=== PATIENT | female | born 1970 | race Hispanic/Latino ===

== ENCOUNTER 2023-10-15 11:15 | Inpatient (IN) | payer BC ==
[~2023-10-15] VITALS: Ht 167.6 cm; Wt 77.6 kg
[~2023-10-15 11:15] MED LIST: AEC81 PO; AMLO2.5T2 PO; CALC-1009 PO; CEPH250C3 PO; GLIM1TAB56 PO; INSU100V12 SQ
[2023-10-15 11:57] LABS: HEMATOCRIT 29.8 % (36-48); MEAN CORPUSCULAR HEMOGLOBIN 23.9 pg (27.0-33.0); MEAN CORPUSCULAR HGB CONC 29.2 g/dL (32.0-36.0); MEAN CORPUSCULAR VOLUME 81.9 fL (79-99); NUCLEATED RED BLOOD CELLS 0.3 % (0.0-0.19); PLATELET COUNT (AUTO) 416 K/uL (130-400); RED BLOOD CELL COUNT(AUTO) 3.64 MIL/uL (4.00-5.50); RED CELL DISTRIBUTION WIDTH 17.8 % (11.0-15.5); WHITE BLOOD COUNT (AUTO) 6.8 K/uL (4.8-10.8)
[2023-10-15 12:13] LABS: CREATININE 7.3 mg/dL (0.5-1.0); INR 0.97 (0.85-1.15); POTASSIUM 5.5 mmol/L (3.5-5.1); PROTHROMBIN TIME 11.5 SEC (9.6-11.6)
[2023-10-15 12:15] LABS: PARTIAL THROMBOPLASTIN TIME 32.7 SEC (26.3-35.5)
[2023-10-15 12:18] LABS: ALBUMIN 1.8 g/dL (3.5-5.0); B-TYPE NATRIURETIC PEPTIDE 2120 pg/mL (0-100); BILIRUBIN,TOTAL 0.2 mg/dL (0.2-1.0); TOTAL PROTEIN, SERUM 6.2 g/dL (6.0-8.3)
[2023-10-15] MEDS ORDERED: BUMETANIDE 2.5MG/10ML (DRIP) 40 ML IV SCH (13:00)
[2023-10-15 13:11] LABS: EOSINOPHILS % (MANUAL) 7 % (1-6); LYMPHOCYTES % (MANUAL) 15 % (22-44); MAN.DIFF COMMENT-IMPRESSION MANUAL DIFFERENTIAL; MONOCYTES % (MANUAL) 14 % (2-9); SEGMENTED NEUTROPHILS % 64 % (40-70); TOTAL CELLS COUNTED 100
[2023-10-15 13:12] LABS: PLATELET MORPHOLOGY COMMENT SLIGHT INCREASED
[2023-10-15] MEDS: NA ZIRCON CYCLOSIL(LOKELMA 10GM) PO ONE (13:13)
[2023-10-15] MEDS: CALCIUM GLUC 1GM/10ML VIAL IVPB SCH (13:14)
[2023-10-15] MEDS: 0.9%NACL 50ML IV SCH (13:14)
[2023-10-15] MEDS ORDERED: DEXTROSE 50%-WATER 50 ML DISP.SYRIN IV PRN ×2 (13:30→16:30)
[2023-10-15] MEDS ORDERED: GLUCAGON 1MG KIT 1 MG ML IM PRN ×2 (13:30→16:30)
[2023-10-15] MEDS ORDERED: AMLO2.5T4 PO (13:31)
[2023-10-15] MEDS ORDERED: GLIM1TAB56 PO (13:32)
[2023-10-15 13:50] VITALS: PULSE 90; RESP 18; O2SAT 98
[2023-10-15 14:31] LABS: HEMOGLOBIN A1C 7.4 % (4.0-6.0)
[2023-10-15 14:49] LABS: % IRON SATURATION 6.7 % (22-44)
[2023-10-15] MEDS: BUMETANIDE 2.5MG/10ML (DRIP) 40 ML IV SCH (15:13)
[2023-10-15 15:14] LABS: ABG BASE EXCESS -13.7 mmol/L (-2.0-3.0); ABG HCO3 12.2 mmol/L (21.0-28.0); ABG PCO2 29 mmHg (32-45); ABG PH 7.237 (7.35-7.450); PO2, ARTERIAL BG 93.9 mmHg (83.0-108.0); VENT MODE, BG NC (ROOM AIR)
[2023-10-15] MEDS: SODIUM BICARBONATE 650 MG TAB PO SCH ×2 (15:16→19:07)
[2023-10-15] MEDS: HYDRALAZINE 20MG/ML VIAL IV PRN (15:16)
[2023-10-15] MEDS: AMLODIPINE 5 MG TAB PO SCH (15:16)
[2023-10-15 15:19] LABS: MAGNESIUM 2.1 mg/dL (1.80-2.40); URIC ACID 6.7 mg/dL (2.6-7.2)
[2023-10-15] MEDS ORDERED: IRON SUCROSE COMPLEX 100 MG/5 ML VIAL IVP SCH (15:30)
[2023-10-15 15:48] LABS: HIV 1&2 ANTIBODY Non-Reactive (Negative)
[2023-10-15 15:49] LABS: HIV-1 p24 Antigen Non-Reactive (Negative)
[2023-10-15 16:13] LABS: ADD UA MICROSCOPIC YES; APPEARANCE,URINE CLEAR (CLEAR); BILIRUBIN,URINE NEGATIVE (NEGATIVE); COLOR,URINE LIGHT-YELLOW (YELLOW); GLUCOSE, URINE (UA) TRACE mg/dL (NEGATIVE); KETONES,URINE NEGATIVE (NEGATIVE); LEUKOCYTE ESTERASE ,URINE NEGATIVE Leu/uL (NEGATIVE); NITRATE,URINE NEGATIVE (NEGATIVE); PH,URINE 6.5 (5.0-8.0); PROTEIN,URINE 600 mg/dL (NEGATIVE); UROBILINOGEN,URINE 0.2 mg/dL (0.2-1.0)
[2023-10-15 16:18] LABS: BACTERIA,URINE RARE /HPF (None Seen); MUCUS,URINE RARE LPF (None Seen); SQUAMOUS EPITHELIAL CELL,UR RARE /HPF (0-2)
[2023-10-15] MEDS: INSULIN HUMULIN R 100 UNIT/ML 3ML SQ SCH (16:30)
[2023-10-15] MEDS ORDERED: POTASSIUM CHLORIDE 10% ELIXIR 20 MEQ/15 ML UDCUP PO PRN (16:30)
[2023-10-15] MEDS ORDERED: POTASSIUM CHLORIDE 10MEQ/100ML 100 ML IV PRN ×2 (16:30)
[2023-10-15] MEDS ORDERED: IRON SUCROSE COMPLEX 300 MG in 0.9% NACL 250ML 250 ML IVP SCH (16:30)
[2023-10-15] MEDS ORDERED: KCL 20 MEQ ERTAB PO PRN (16:30)
[2023-10-15 16:47] LABS: CHLORIDE,URINE RANDOM 101 mmol/L (110-250); POTASSIUM,URINE RANDOM 25 mmol/L (25-125); SODIUM,URINE RANDOM 101 mmol/l (40-220)
[2023-10-15 16:53] LABS: AMPHET/METH SCREEN,URINE NEGATIVE (NEGATIVE); BARBITURATE SCREEN, URINE NEGATIVE (NEGATIVE); BENZODIAZEPINES SCREEN,URINE NEGATIVE (NEGATIVE); CANNABINOID SCREEN,URINE NEGATIVE (NEGATIVE); COCAINE SCREEN,URINE NEGATIVE (NEGATIVE); OPIATE SCREEN,URINE NEGATIVE (NEGATIVE); PHENCYCLIDINE SCREEN,URINE NEGATIVE (NEGATIVE)
[2023-10-15 17:02] LABS: SARS-CoV-2, RNA, NAAT NEGATIVE SARS CoV-2 (NEGATIVE)
[2023-10-15] MEDS: FUROSEMIDE 40MG VIAL IV SCH (17:03)
[2023-10-15] MEDS: CA 600MG+VIT D 400 UNIT TAB 1 TAB TABLET PO SCH (17:04)
[2023-10-15] MEDS: IRON SUCROSE COMPLEX 300 MG in 0.9% NACL 250ML 250 ML IVP SCH (17:04)
[2023-10-15 17:11] LABS: INFLUENZA TYPE A NEGATIVE FOR TYPE A (NEG); INFLUENZA TYPE B NEGATIVE FOR TYPE B (NEG)
[2023-10-15 17:49] VITALS: BP 134/76; PULSE 92; RESP 22
[2023-10-15 18:35] LABS: CREATININE 7.5 mg/dL (0.5-1.0); POTASSIUM 5.3 mmol/L (3.5-5.1)
[2023-10-15 18:52] VITALS: O2SAT 95
[2023-10-15] MEDS: PANTOPRAZOLE 40 MG TAB DR PO SCH (19:07)
[2023-10-15] MEDS: HEPARIN 5,000 UNIT VIAL SQ SCH (19:07)
[2023-10-15] MEDS: BUDESONIDE 0.5 MG/2 ML INH IH SCH (19:28)
[2023-10-15 19:34] VITALS: PULSE 85; RESP 16
[2023-10-15 19:35] VITALS: BP 147/65; PULSE 86; RESP 18
[2023-10-15 19:35] LABS: CHOLESTEROL 162 mg/dL (<200); HDL CHOLESTEROL 86 mg/dL (35-85); LDL DIRECT 66 mg/dL (0-99); TRIGLYCERIDES 108 mg/dL (30-200)
[2023-10-15 20:00] VITALS: O2SAT 95
[2023-10-15] MEDS: NA ZIRCON CYCLOSIL(LOKELMA 10GM) PO SCH (22:05)
[2023-10-16] VITALS (12 sets, daily range): BP systolic 129–139; BP diastolic 62–88; PULSE 86–95; RESP 0–22; O2SAT 95–97
[2023-10-16] MEDS: GUAIFENESIN-DM 200/20 MG 10 ML PO ONE (02:17)
[2023-10-16] MEDS: GUAIFENESIN-DM 200/20 MG 10 ML ONE (02:37)
[2023-10-16] MEDS: ONDANSETRON 4MG INJ IVP PRN (02:44)
[2023-10-16 03:57] LABS: BASOPHILS # (AUTO) 0.08 K/uL (0.00-0.20); EOSINOPHILS # (AUTO) 0.23 K/uL (0.00-0.70); EOSINOPHILS % (AUTO) 2.9 % (0.0-8.0); HEMATOCRIT 25.7 % (36-48); IMMATURE GRANULOCYTE ABSOLUTE 0.03 K/uL (0-1); LYMPHOCYTES # (AUTO) 1.1 K/uL (1.0-4.8); LYMPHOCYTES % (AUTO) 14.6 % (21.0-51.0); MEAN CORPUSCULAR HEMOGLOBIN 23.7 pg (27.0-33.0); MEAN CORPUSCULAR HGB CONC 29.6 g/dL (32.0-36.0); MEAN CORPUSCULAR VOLUME 80.1 fL (79-99); MONOCYTES # (AUTO) 0.5 K/uL (0.1-1.0); MONOCYTES % (AUTO) 6.7 % (3.0-13.0); NEUTROPHILS # (AUTO) 5.8 K/uL (1.8-7.7); NEUTROPHILS % (AUTO) 74.4 % (40.0-77.0); NUCLEATED RED BLOOD CELLS 0.4 % (0.0-0.19); PLATELET COUNT (AUTO) 402 K/uL (130-400); RED BLOOD CELL COUNT(AUTO) 3.21 MIL/uL (4.00-5.50); RED CELL DISTRIBUTION WIDTH 18.2 % (11.0-15.5); WHITE BLOOD COUNT (AUTO) 7.8 K/uL (4.8-10.8)
[2023-10-16] MEDS: PROMETHAZINE HCL 25 MG/ML 1ML AMPULE IM ONE ×2 (04:09→04:10)
[2023-10-16 04:10] LABS: CREATININE 7.5 mg/dL (0.5-1.0); MAGNESIUM 1.9 mg/dL (1.80-2.40); POTASSIUM 4.9 mmol/L (3.5-5.1)
[2023-10-16] MEDS ORDERED: LEVOTHYROXINE 100 MCG TABLET PO SCH (06:30)
[2023-10-16] MEDS: PANTOPRAZOLE 40 MG TAB DR PO SCH (10:17)
[2023-10-16] MEDS: ASPIRIN 81 MG EC TAB PO SCH (10:17)
[2023-10-16] MEDS ORDERED: COMPOUND IV MISC 1 EACH IVSOLN MISC PRN (11:30)
[2023-10-16] MEDS: DOCUSATE SODIUM 100 MG CAP PO ONE (19:49)
[2023-10-16 19:54] LABS: CREATININE 7.8 mg/dL (0.5-1.0); POTASSIUM 4.8 mmol/L (3.5-5.1)
[2023-10-16] MEDS ORDERED: DOCUSATE SODIUM 100 MG CAP PO SCH (21:00)
[2023-10-16] MEDS: HEPARIN 5,000 UNIT VIAL SQ SCH (21:45)
[2023-10-16 22:35] LABS: HEPATITIS A IGM ANTIBODY Non-Reactive (Nonreactive); HEPATITIS B CORE IGM ANTIBODY Non-Reactive (Negative); HEPATITIS B SURFACE ANTIGEN Non-Reactive (Nonreactive); HEPATITIS C ANTIBODY Non-Reactive (Nonreactive)
[2023-10-17] VITALS (11 sets, daily range): BP systolic 123–168; BP diastolic 60–73; PULSE 90–100; RESP 18–20; O2SAT 95–99
[2023-10-17 05:42] LABS: BASOPHILS # (AUTO) 0.08 K/uL (0.00-0.20); BASOPHILS % (AUTO) 0.5 % (0.0-5.0); EOSINOPHILS # (AUTO) 0.11 K/uL (0.00-0.70); EOSINOPHILS % (AUTO) 0.7 % (0.0-8.0); HEMATOCRIT 25.9 % (36-48); LYMPHOCYTES # (AUTO) 1.5 K/uL (1.0-4.8); LYMPHOCYTES % (AUTO) 9.2 % (21.0-51.0); MEAN CORPUSCULAR HEMOGLOBIN 23.6 pg (27.0-33.0); MEAN CORPUSCULAR VOLUME 81.4 fL (79-99); MONOCYTES % (AUTO) 6.1 % (3.0-13.0); NEUTROPHILS # (AUTO) 13.6 K/uL (1.8-7.7); NEUTROPHILS % (AUTO) 82.9 % (40.0-77.0); NUCLEATED RED BLOOD CELLS 0.2 % (0.0-0.19); PLATELET COUNT (AUTO) 382 K/uL (130-400); RED BLOOD CELL COUNT(AUTO) 3.18 MIL/uL (4.00-5.50); RED CELL DISTRIBUTION WIDTH 18.3 % (11.0-15.5); WHITE BLOOD COUNT (AUTO) 16.4 K/uL (4.8-10.8)
[2023-10-17 05:54] LABS: INR 1.09 (0.85-1.15); PROTHROMBIN TIME 12.8 SEC (9.6-11.6)
[2023-10-17 05:55] LABS: PARTIAL THROMBOPLASTIN TIME 45.7 SEC (26.3-35.5)
[2023-10-17 05:56] LABS: CREATININE 7.7 mg/dL (0.5-1.0); POTASSIUM 4.7 mmol/L (3.5-5.1)
[2023-10-17 11:39] LABS: ABG BASE EXCESS -8.8 mmol/L (-2.0-3.0); ABG HCO3 16.3 mmol/L (21.0-28.0); ABG OXYGEN SATURATION 96.7 % (95.0-99.0); ABG PCO2 33 mmHg (32-45); ABG PH 7.309 (7.35-7.450); DEVICE COMMENT THOMAS RN RR; PO2, ARTERIAL BG 94.7 mmHg (83.0-108.0); VENT MODE, BG 2L NC (ROOM AIR)
[2023-10-17] MEDS: SODIUM BICARB 50MEQ 50ML VIAL IV ONE ×2 (12:03→22:45)
[2023-10-17] MEDS: METRONIDAZOLE 500MG/100ML BAG 100 ML IVPB SCH (13:15)
[2023-10-17 13:42] LABS: POTASSIUM 4.9 mmol/L (3.5-5.1)
[2023-10-17] MEDS: CEFEPIME HCL 1 GM VIAL IVPB SCH (15:42)
[2023-10-17 19:44] LABS: POTASSIUM 4.6 mmol/L (3.5-5.1)
[2023-10-17] MEDS: ACETAMINOPHEN 325 MG TAB PO PRN (22:45)
[2023-10-17 23:19] LABS: CREATININE 7.9 mg/dL (0.5-1.0); POTASSIUM 4.5 mmol/L (3.5-5.1)
[2023-10-18] VITALS (11 sets, daily range): BP systolic 131–149; BP diastolic 63–84; PULSE 88–96; RESP 18–20; O2SAT 94–98
[2023-10-18 04:43] LABS: ALBUMIN 1.2 g/dL (3.5-5.0); BILIRUBIN,TOTAL 0.2 mg/dL (0.2-1.0); MAGNESIUM 1.8 mg/dL (1.80-2.40); POTASSIUM 4.3 mmol/L (3.5-5.1); TOTAL PROTEIN, SERUM 4.9 g/dL (6.0-8.3)
[2023-10-18 04:56] LABS: HEMATOCRIT 23.9 % (36-48); MEAN CORPUSCULAR HEMOGLOBIN 23.8 pg (27.0-33.0); MEAN CORPUSCULAR HGB CONC 29.7 g/dL (32.0-36.0); MEAN CORPUSCULAR VOLUME 80.2 fL (79-99); NUCLEATED RED BLOOD CELLS 0.3 % (0.0-0.19); PLATELET COUNT (AUTO) 360 K/uL (130-400); RED BLOOD CELL COUNT(AUTO) 2.98 MIL/uL (4.00-5.50); RED CELL DISTRIBUTION WIDTH 18.4 % (11.0-15.5); WHITE BLOOD COUNT (AUTO) 12.8 K/uL (4.8-10.8)
[2023-10-18 05:49] LABS: BAND NEUTROPHILS % (MANUAL) 7 % (0-2); BASOPHILS % (MANUAL) 2 % (0-2); EOSINOPHILS % (MANUAL) 6 % (1-6); LYMPHOCYTES % (MANUAL) 12 % (22-44); MAN.DIFF COMMENT-IMPRESSION MANUAL DIFFERENTIAL; MONOCYTES % (MANUAL) 2 % (2-9); SEGMENTED NEUTROPHILS % 71 % (40-70); TOTAL CELLS COUNTED 100
[2023-10-18 05:50] LABS: PLATELET MORPHOLOGY COMMENT ADEQUATE; WBC MORPHOLOGY BANDS SEEN
[2023-10-18 07:27] LABS: POTASSIUM 4.4 mmol/L (3.5-5.1)
[2023-10-18] MEDS: METOCLOPRAMIDE 10 MG/2 ML VIAL IVP SCH (09:57)
[2023-10-18] MEDS: MAGNESIUM 2GM PREMIX 50ML 50 ML IV PRN (09:58)
[2023-10-18 15:13] LABS: ATYPICAL P-ANCA AB <1:20 titer (Neg:<1:20); CYTOPLASMIC (C-ANCA) AB, IGG <1:20 titer (Neg:<1:20)
[2023-10-18] MEDS: BENZONATATE 100 MG CAPSULE PO PRN (18:32)
[2023-10-19] VITALS (14 sets, daily range): BP systolic 125–140; BP diastolic 57–70; PULSE 83–105; RESP 18–20; O2SAT 93–97
[2023-10-19 04:55] LABS: BASOPHILS # (AUTO) 0.08 K/uL (0.00-0.20); BASOPHILS % (AUTO) 0.8 % (0.0-5.0); EOSINOPHILS # (AUTO) 0.32 K/uL (0.00-0.70); EOSINOPHILS % (AUTO) 3.2 % (0.0-8.0); HEMATOCRIT 25.7 % (36-48); IMMATURE GRANULOCYTE ABSOLUTE 0.06 K/uL (0-1); LYMPHOCYTES # (AUTO) 1.5 K/uL (1.0-4.8); LYMPHOCYTES % (AUTO) 14.6 % (21.0-51.0); MEAN CORPUSCULAR HEMOGLOBIN 23.9 pg (27.0-33.0); MEAN CORPUSCULAR HGB CONC 29.6 g/dL (32.0-36.0); MEAN CORPUSCULAR VOLUME 80.8 fL (79-99); MONOCYTES # (AUTO) 0.8 K/uL (0.1-1.0); MONOCYTES % (AUTO) 8.1 % (3.0-13.0); NEUTROPHILS # (AUTO) 7.3 K/uL (1.8-7.7); NEUTROPHILS % (AUTO) 72.7 % (40.0-77.0); NUCLEATED RED BLOOD CELLS 0.2 % (0.0-0.19); PLATELET COUNT (AUTO) 386 K/uL (130-400); RED BLOOD CELL COUNT(AUTO) 3.18 MIL/uL (4.00-5.50); RED CELL DISTRIBUTION WIDTH 18.6 % (11.0-15.5); WHITE BLOOD COUNT (AUTO) 10.1 K/uL (4.8-10.8)
[2023-10-19 05:25] LABS: ALBUMIN 1.3 g/dL (3.5-5.0); BILIRUBIN,TOTAL 0.2 mg/dL (0.2-1.0); MAGNESIUM 2.2 mg/dL (1.80-2.40); POTASSIUM 4.4 mmol/L (3.5-5.1); TOTAL PROTEIN, SERUM 5.2 g/dL (6.0-8.3)
[2023-10-19 05:29] LABS: CREATININE 8.3 mg/dL (0.5-1.0)
[2023-10-19] MEDS: IPRATROPIUM/ALBUTEROL SULFATE 3 ML SOLUTION IH PRN (11:36)
[2023-10-20] VITALS (23 sets, daily range): BP systolic 131–169; BP diastolic 62–97; PULSE 89–106; RESP 16–18; TEMP 98.2–98.4; O2SAT 94–100
[2023-10-20 04:15] LABS: BASOPHILS # (AUTO) 0.07 K/uL (0.00-0.20); BASOPHILS % (AUTO) 0.8 % (0.0-5.0); EOSINOPHILS # (AUTO) 0.27 K/uL (0.00-0.70); EOSINOPHILS % (AUTO) 3.1 % (0.0-8.0); HEMATOCRIT 24.8 % (36-48); IMMATURE GRANULOCYTE ABSOLUTE 0.05 K/uL (0-1); LYMPHOCYTES # (AUTO) 1.6 K/uL (1.0-4.8); LYMPHOCYTES % (AUTO) 17.9 % (21.0-51.0); MEAN CORPUSCULAR HEMOGLOBIN 23.8 pg (27.0-33.0); MEAN CORPUSCULAR HGB CONC 29.4 g/dL (32.0-36.0); MEAN CORPUSCULAR VOLUME 80.8 fL (79-99); MONOCYTES # (AUTO) 0.9 K/uL (0.1-1.0); MONOCYTES % (AUTO) 9.6 % (3.0-13.0); PLATELET COUNT (AUTO) 368 K/uL (130-400); RED BLOOD CELL COUNT(AUTO) 3.07 MIL/uL (4.00-5.50); RED CELL DISTRIBUTION WIDTH 19.1 % (11.0-15.5); WHITE BLOOD COUNT (AUTO) 8.8 K/uL (4.8-10.8)
[2023-10-20 04:17] LABS: PROTHROMBIN TIME 11.8 SEC (9.6-11.6)
[2023-10-20 04:33] LABS: ALBUMIN 1.3 g/dL (3.5-5.0); BILIRUBIN,TOTAL 0.2 mg/dL (0.2-1.0); MAGNESIUM 2.1 mg/dL (1.80-2.40); POTASSIUM 4.3 mmol/L (3.5-5.1)
[2023-10-20 04:57] LABS: CREATININE 8.5 mg/dL (0.5-1.0)
[2023-10-20] MEDS ORDERED: TAMSULOSIN HCL 0.4 MG CAP.ER.24H PO SCH (09:00)
[2023-10-20] MEDS ORDERED: LIDOCAINE HCL 400MG/20ML VIAL ONE (12:38)
[2023-10-20] MEDS ORDERED: HEPARIN 1,000 UNIT VIAL ONE (12:38)
[2023-10-20 17:57] LABS: HEMATOCRIT 25.4 % (36-48)
[2023-10-20 18:20] LABS: ALBUMIN 1.5 g/dL (3.5-5.0)
[2023-10-20 18:26] LABS: CREATININE 8.6 mg/dL (0.5-1.0)
[2023-10-20 18:27] LABS: % IRON SATURATION 14.7 % (22-44)
[2023-10-20 19:16] LABS: HIV 1&2 ANTIBODY Non-Reactive (Negative); HIV-1 p24 Antigen Non-Reactive (Negative)
[2023-10-21] VITALS (24 sets, daily range): BP systolic 140–162; BP diastolic 75–106; PULSE 82–107; RESP 16–20; TEMP 98–98.2; O2SAT 94–98
[2023-10-21 04:02] LABS: HEMATOCRIT 26.1 % (36-48); MEAN CORPUSCULAR HEMOGLOBIN 23.6 pg (27.0-33.0); MEAN CORPUSCULAR HGB CONC 29.5 g/dL (32.0-36.0); MEAN CORPUSCULAR VOLUME 80.1 fL (79-99); RED BLOOD CELL COUNT(AUTO) 3.26 MIL/uL (4.00-5.50); WHITE BLOOD COUNT (AUTO) 7.5 K/uL (4.8-10.8)
[2023-10-21 04:22] LABS: ALBUMIN 1.3 g/dL (3.5-5.0); BILIRUBIN,TOTAL 0.2 mg/dL (0.2-1.0); CREATININE 6.7 mg/dL (0.5-1.0); MAGNESIUM 1.8 mg/dL (1.80-2.40); PHOSPHORUS 5.3 mg/dL (2.5-4.9); POTASSIUM 3.8 mmol/L (3.5-5.1); TOTAL PROTEIN, SERUM 5.2 g/dL (6.0-8.3)
[2023-10-21 17:08] LABS: HEPATITIS B CORE AB TOTAL Non-Reactive (Nonreactive); HEPATITIS B SURFACE ANTIBODY Negative (Reactive); HEPATITIS B SURFACE ANTIGEN Non-Reactive (Nonreactive)
[2023-10-21] MEDS: HEPARIN 5,000 UNIT VIAL IJ SCH (21:21)
[2023-10-22] VITALS (26 sets, daily range): BP systolic 140–162; BP diastolic 74–96; PULSE 93–105; RESP 16–19; TEMP 97.7–97.9; O2SAT 90–97
[2023-10-22 04:41] LABS: HEMATOCRIT 25.7 % (36-48); MEAN CORPUSCULAR HEMOGLOBIN 23.8 pg (27.0-33.0); MEAN CORPUSCULAR VOLUME 79.3 fL (79-99); RED BLOOD CELL COUNT(AUTO) 3.24 MIL/uL (4.00-5.50); RED CELL DISTRIBUTION WIDTH 18.9 % (11.0-15.5); WHITE BLOOD COUNT (AUTO) 7.9 K/uL (4.8-10.8)
[2023-10-22 05:05] LABS: ALBUMIN 1.3 g/dL (3.5-5.0); BILIRUBIN,TOTAL 0.2 mg/dL (0.2-1.0); CREATININE 5.2 mg/dL (0.5-1.0); MAGNESIUM 1.7 mg/dL (1.80-2.40); POTASSIUM 3.4 mmol/L (3.5-5.1); TOTAL PROTEIN, SERUM 5.1 g/dL (6.0-8.3)
[2023-10-22] MEDS ORDERED: MAGNESIUM 2GM PREMIX 50ML 50 ML IV SCH ×2 (09:00)
[2023-10-22] MEDS: KCL 20 MEQ ERTAB PO ONE (09:16)
[2023-10-23] VITALS (13 sets, daily range): BP systolic 129–159; BP diastolic 65–75; PULSE 88–105; RESP 18–19; O2SAT 94–98
[2023-10-23 04:21] LABS: HEMATOCRIT 25.8 % (36-48); MEAN CORPUSCULAR HEMOGLOBIN 23.9 pg (27.0-33.0); MEAN CORPUSCULAR HGB CONC 29.1 g/dL (32.0-36.0); MEAN CORPUSCULAR VOLUME 82.2 fL (79-99); RED BLOOD CELL COUNT(AUTO) 3.14 MIL/uL (4.00-5.50); RED CELL DISTRIBUTION WIDTH 18.8 % (11.0-15.5); WHITE BLOOD COUNT (AUTO) 7.5 K/uL (4.8-10.8)
[2023-10-23 04:37] LABS: ALBUMIN 1.3 g/dL (3.5-5.0); ASPARTATE AMINOTRANSFERASE 18 U/L (10-37); BILIRUBIN,TOTAL 0.2 mg/dL (0.2-1.0); CARBON DIOXIDE 29 mmol/L (21-32); CHLORIDE 106 mmol/L (101-111); GLOMERULAR FILTR. RATE CALC 13 mL/min (>90); GLUCOSE,RANDOM 113 mg/dL (70-105); POTASSIUM 3.6 mmol/L (3.5-5.1); SODIUM SERUM 143 mmol/L (136-145); UREA NITROGEN, BLOOD 23 mg/dL (7-18)
[2023-10-23 04:47] LABS: ALANINE AMINOTRANSFERASE < 6 U/L (12-78)
[2023-10-23] MEDS: HEPARIN 5,000 UNIT VIAL SQ SCH (14:22)
[2023-10-23] MEDS: METRONIDAZOLE 500 MG TABLET PO SCH (21:51)
[2023-10-24] VITALS (11 sets, daily range): BP systolic 127–147; BP diastolic 71–83; PULSE 89–100; RESP 17–20; O2SAT 94–95
[2023-10-24 05:18] LABS: MEAN CORPUSCULAR HEMOGLOBIN 24.1 pg (27.0-33.0); MEAN CORPUSCULAR HGB CONC 29.2 g/dL (32.0-36.0); MEAN CORPUSCULAR VOLUME 82.5 fL (79-99); RED BLOOD CELL COUNT(AUTO) 2.91 MIL/uL (4.00-5.50); RED CELL DISTRIBUTION WIDTH 18.9 % (11.0-15.5); WHITE BLOOD COUNT (AUTO) 7.2 K/uL (4.8-10.8)
[2023-10-24 05:48] LABS: ALBUMIN 1.3 g/dL (3.5-5.0); BILIRUBIN,TOTAL 0.2 mg/dL (0.2-1.0); CREATININE 4.8 mg/dL (0.5-1.0); MAGNESIUM 1.8 mg/dL (1.80-2.40); POTASSIUM 3.6 mmol/L (3.5-5.1); TOTAL PROTEIN, SERUM 5.1 g/dL (6.0-8.3)
[2023-10-24 10:23] LABS: HEMATOCRIT 27.3 % (36-48); MEAN CORPUSCULAR HEMOGLOBIN 23.3 pg (27.0-33.0); MEAN CORPUSCULAR HGB CONC 28.6 g/dL (32.0-36.0); MEAN CORPUSCULAR VOLUME 81.5 fL (79-99); RED BLOOD CELL COUNT(AUTO) 3.35 MIL/uL (4.00-5.50); RED CELL DISTRIBUTION WIDTH 19.1 % (11.0-15.5); WHITE BLOOD COUNT (AUTO) 8.3 K/uL (4.8-10.8)
[2023-10-24] MEDS: HEPARIN 5,000 UNIT VIAL SQ SCH (20:07)
[2023-10-25] VITALS (26 sets, daily range): BP systolic 132–163; BP diastolic 70–96; PULSE 88–102; RESP 16–20; TEMP 98; O2SAT 92–96
[2023-10-25 06:00] LABS: HEMATOCRIT 26.3 % (36-48); MEAN CORPUSCULAR HGB CONC 28.5 g/dL (32.0-36.0); PLATELET COUNT (AUTO) 366 K/uL (130-400); RED BLOOD CELL COUNT(AUTO) 3.13 MIL/uL (4.00-5.50); RED CELL DISTRIBUTION WIDTH 19.3 % (11.0-15.5); WHITE BLOOD COUNT (AUTO) 9.3 K/uL (4.8-10.8)
[2023-10-25 06:25] LABS: ALBUMIN 1.4 g/dL (3.5-5.0); BILIRUBIN,TOTAL 0.2 mg/dL (0.2-1.0); CREATININE 5.4 mg/dL (0.5-1.0); MAGNESIUM 1.9 mg/dL (1.80-2.40); POTASSIUM 3.7 mmol/L (3.5-5.1); TOTAL PROTEIN, SERUM 5.5 g/dL (6.0-8.3)
[2023-10-25] MEDS: POTASSIUM CHLORIDE 10MEQ SR TAB PO PRN (06:32)
[2023-10-26] VITALS (9 sets, daily range): BP systolic 149–154; BP diastolic 77–82; PULSE 92–100; RESP 18–20; O2SAT 93–97
[2023-10-26 06:39] LABS: HEMATOCRIT 26.1 % (36-48); MEAN CORPUSCULAR HEMOGLOBIN 23.7 pg (27.0-33.0); MEAN CORPUSCULAR HGB CONC 29.1 g/dL (32.0-36.0); MEAN CORPUSCULAR VOLUME 81.3 fL (79-99); RED BLOOD CELL COUNT(AUTO) 3.21 MIL/uL (4.00-5.50); RED CELL DISTRIBUTION WIDTH 19.2 % (11.0-15.5); WHITE BLOOD COUNT (AUTO) 8.7 K/uL (4.8-10.8)
[2023-10-26 06:44] LABS: CREATININE 3.8 mg/dL (0.5-1.0); PHOSPHORUS 3.4 mg/dL (2.5-4.9); POTASSIUM 4.2 mmol/L (3.5-5.1)
[2023-10-27] VITALS (22 sets, daily range): BP systolic 135–161; BP diastolic 59–100; PULSE 89–103; RESP 16–19; TEMP 98.5–98.7; O2SAT 95–97
[2023-10-27 04:13] LABS: BASOPHILS # (AUTO) 0.07 K/uL (0.00-0.20); BASOPHILS % (AUTO) 0.8 % (0.0-5.0); EOSINOPHILS # (AUTO) 0.24 K/uL (0.00-0.70); EOSINOPHILS % (AUTO) 2.6 % (0.0-8.0); HEMATOCRIT 25.5 % (36-48); IMMATURE GRANULOCYTE ABSOLUTE 0.04 K/uL (0-1); LYMPHOCYTES # (AUTO) 1.5 K/uL (1.0-4.8); MEAN CORPUSCULAR HEMOGLOBIN 24.2 pg (27.0-33.0); MEAN CORPUSCULAR HGB CONC 28.6 g/dL (32.0-36.0); MEAN CORPUSCULAR VOLUME 84.4 fL (79-99); MONOCYTES # (AUTO) 1.2 K/uL (0.1-1.0); MONOCYTES % (AUTO) 12.8 % (3.0-13.0); NEUTROPHILS # (AUTO) 6.2 K/uL (1.8-7.7); NEUTROPHILS % (AUTO) 67.4 % (40.0-77.0); PLATELET COUNT (AUTO) 377 K/uL (130-400); RED BLOOD CELL COUNT(AUTO) 3.02 MIL/uL (4.00-5.50); RED CELL DISTRIBUTION WIDTH 19.5 % (11.0-15.5); WHITE BLOOD COUNT (AUTO) 9.2 K/uL (4.8-10.8)
[2023-10-27 04:27] LABS: ALBUMIN 1.5 g/dL (3.5-5.0); BILIRUBIN,TOTAL 0.3 mg/dL (0.2-1.0); CREATININE 4.5 mg/dL (0.5-1.0); PHOSPHORUS 3.8 mg/dL (2.5-4.9); POTASSIUM 4.1 mmol/L (3.5-5.1); TOTAL PROTEIN, SERUM 5.5 g/dL (6.0-8.3)
[2023-10-27] MEDS: EPOETIN ALFA-EPBX (NON-ESRD) 10,000 UNIT/ML VIAL SQ SCH (22:06)
[2023-10-28] VITALS (30 sets, daily range): BP systolic 130–162; BP diastolic 64–86; PULSE 9–98; RESP 15–18; O2SAT 92–98
[2023-10-28 04:08] LABS: BASOPHILS # (AUTO) 0.09 K/uL (0.00-0.20); EOSINOPHILS # (AUTO) 0.23 K/uL (0.00-0.70); EOSINOPHILS % (AUTO) 2.4 % (0.0-8.0); HEMATOCRIT 25.4 % (36-48); IMMATURE GRANULOCYTE ABSOLUTE 0.05 K/uL (0-1); LYMPHOCYTES # (AUTO) 1.6 K/uL (1.0-4.8); LYMPHOCYTES % (AUTO) 17.4 % (21.0-51.0); MEAN CORPUSCULAR HEMOGLOBIN 24.3 pg (27.0-33.0); MEAN CORPUSCULAR HGB CONC 29.9 g/dL (32.0-36.0); MEAN CORPUSCULAR VOLUME 81.2 fL (79-99); MONOCYTES # (AUTO) 0.9 K/uL (0.1-1.0); NEUTROPHILS # (AUTO) 6.6 K/uL (1.8-7.7); NEUTROPHILS % (AUTO) 69.7 % (40.0-77.0); PLATELET COUNT (AUTO) 422 K/uL (130-400); RED BLOOD CELL COUNT(AUTO) 3.13 MIL/uL (4.00-5.50); RED CELL DISTRIBUTION WIDTH 19.9 % (11.0-15.5); WHITE BLOOD COUNT (AUTO) 9.4 K/uL (4.8-10.8)
[2023-10-28 04:19] LABS: INR 0.95 (0.85-1.15); PROTHROMBIN TIME 11.3 SEC (9.6-11.6)
[2023-10-28 04:21] LABS: PARTIAL THROMBOPLASTIN TIME 29.1 SEC (26.3-35.5)
[2023-10-28 04:39] LABS: ALBUMIN 1.5 g/dL (3.5-5.0); BILIRUBIN,TOTAL 0.2 mg/dL (0.2-1.0); CREATININE 3.1 mg/dL (0.5-1.0); PHOSPHORUS 3.3 mg/dL (2.5-4.9); POTASSIUM 3.6 mmol/L (3.5-5.1); TOTAL PROTEIN, SERUM 5.8 g/dL (6.0-8.3)
[2023-10-28] MEDS: LIDOCAINE HCL 400MG/20ML VIAL ONE (11:49)
[2023-10-28] MEDS ORDERED: MIDAZOLAM HCL 1 MG/ML 2ML VIAL ONE (12:04)
[2023-10-28] MEDS ORDERED: LIDOCAINE PF 100MG/5ML (2%) SYRINGE 5ML ONE (12:39)
[2023-10-28] MEDS ORDERED: KETAMINE 50MG/ML SYRINGE 50 MG/ML DISP.SYRIN ONE (12:39)
[2023-10-28] MEDS ORDERED: PROPOFOL 10 MG/ML 20ML VIAL IV ONE (12:39)
[2023-10-28] MEDS ORDERED: ROCURONIUM BROMIDE 10MG/1ML 5ML VL ONE (12:59)
[2023-10-28] MEDS ORDERED: CEFAZOLIN SODIUM 1 GM VIAL ONE ×2 (13:06→13:38)
[2023-10-28] MEDS ORDERED: LIDOCAINE HCL 1% 20 ML VIAL ONE (13:06)
[2023-10-28] MEDS ORDERED: BUPIVACAINE/PF 0.5% 30ML VIAL ONE (13:06)
[2023-10-28] MEDS ORDERED: GLYCOPYRROLATE 0.2 MG/ML 5 ML VIAL ONE (13:12)
[2023-10-28] MEDS ORDERED: HEPARIN 10,000 UNIT/10ML (1,000 UNIT/ML) VIAL ONE (13:15)
[2023-10-28] MEDS: HEPARIN 5,000 UNIT VIAL IRRIG ONE (13:37)
[2023-10-28] MEDS ORDERED: FENTANYL CITRATE PF 50 MCG/1 ML 2ML VIAL ONE (13:38)
[2023-10-28] MEDS: METRONIDAZOLE 500MG/100ML BAG 100 ML ONE (13:39)
[2023-10-28] MEDS: BUPIVACAINE/PF 0.5% 30ML VIAL INJ ONE (13:55)
[2023-10-28] MEDS ORDERED: ACETAMINOPHEN 325 MG TAB PO PRN (14:00)
[2023-10-28] MEDS ORDERED: TRAMADOL HCL 50 MG TABLET PO PRN (14:00)
[2023-10-28] MEDS: TRAMADOL HCL 50 MG TABLET PO PRN (18:11)
[2023-10-29] VITALS (25 sets, daily range): BP systolic 133–159; BP diastolic 68–87; PULSE 71–97; RESP 16–18; TEMP 97.9–98.2; O2SAT 92–98
[2023-10-29 04:41] LABS: HEMATOCRIT 23.9 % (36-48); MEAN CORPUSCULAR HEMOGLOBIN 24.3 pg (27.0-33.0); MEAN CORPUSCULAR HGB CONC 29.7 g/dL (32.0-36.0); MEAN CORPUSCULAR VOLUME 81.8 fL (79-99); RED BLOOD CELL COUNT(AUTO) 2.92 MIL/uL (4.00-5.50); RED CELL DISTRIBUTION WIDTH 20.1 % (11.0-15.5)
[2023-10-29 05:22] LABS: ALBUMIN 1.4 g/dL (3.5-5.0); BILIRUBIN,TOTAL 0.2 mg/dL (0.2-1.0); CREATININE 3.9 mg/dL (0.5-1.0); PHOSPHORUS 4.3 mg/dL (2.5-4.9); POTASSIUM 3.9 mmol/L (3.5-5.1); TOTAL PROTEIN, SERUM 5.3 g/dL (6.0-8.3)
[2023-10-29] MEDS ORDERED: ALBUMIN (HUMAN) 25% 100 ML IV PRN (14:00)
[2023-10-29] MEDS ORDERED: AMLO-257 PO (18:26)
[2023-10-29] MEDS ORDERED: CEPHALEXIN 250 MG CAPSULE PO SCH (21:00)
[2023-10-29] MEDS ORDERED: INSULIN GLARGINE 100 UNITS/ML 10 ML VIAL SQ SCH (21:00)
[2023-10-30] MEDS ORDERED: GLIMEPIRIDE 2 MG TABLET PO SCH (09:00)
[2023-10-30] MEDS ORDERED: AMLODIPINE 2.5 MG TAB PO SCH (09:00)
== END 2023-10-29 19:00 | disposition home or self-care (01) | DRG 264 ==
LOC: EDH 11:15 → EDHIP 13:23 → 2AH 16:55 → 3AH 10-22 20:39
PROVIDERS: ADMIT Internal Medicine; ATTEND Internal Medicine
PROC: 5A1D70Z Performance of Urinary Filtration, Intermittent, Less than 6 Hours Per Day (ICD-10-PCS; 2023-10-20)
PROC: 5A1D70Z Performance of Urinary Filtration, Intermittent, Less than 6 Hours Per Day (ICD-10-PCS; 2023-10-21)
PROC: 02HV33Z Insertion of Infusion Device into Superior Vena Cava, Percutaneous Approach (ICD-10-PCS; 2023-10-21)
PROC: B548ZZA Ultrasonography of Superior Vena Cava, Guidance (ICD-10-PCS; 2023-10-21)
PROC: 5A1D70Z Performance of Urinary Filtration, Intermittent, Less than 6 Hours Per Day (ICD-10-PCS; 2023-10-22)
PROC: 5A1D70Z Performance of Urinary Filtration, Intermittent, Less than 6 Hours Per Day (ICD-10-PCS; 2023-10-25)
PROC: 5A1D70Z Performance of Urinary Filtration, Intermittent, Less than 6 Hours Per Day (ICD-10-PCS; 2023-10-27)
PROC: 03180ZD Bypass Left Brachial Artery to Upper Arm Vein, Open Approach (ICD-10-PCS; principal; 2023-10-28 12:44)
PROC: 5A1D70Z Performance of Urinary Filtration, Intermittent, Less than 6 Hours Per Day (ICD-10-PCS; 2023-10-29)
DX: I13.2 Hypertensive heart and chronic kidney disease with heart failure and with stage 5 chronic kidney disease, or end stage renal disease (principal); I50.33 Acute on chronic diastolic (congestive) heart failure; J15.9 Unspecified bacterial pneumonia; J96.01 Acute respiratory failure with hypoxia; N18.6 End stage renal disease; N17.9 Acute kidney failure, unspecified; E87.20 Acidosis, unspecified; J90 Pleural effusion, not elsewhere classified; J98.11 Atelectasis; J81.1 Chronic pulmonary edema; I82.611 Acute embolism and thrombosis of superficial veins of right upper extremity; Z20.822 Contact with and (suspected) exposure to COVID-19; E88.09 Other disorders of plasma-protein metabolism, not elsewhere classified; E87.5 Hyperkalemia; E11.22 Type 2 diabetes mellitus with diabetic chronic kidney disease; E11.36 Type 2 diabetes mellitus with diabetic cataract; D50.9 Iron deficiency anemia, unspecified; E03.9 Hypothyroidism, unspecified; E77.8 Other disorders of glycoprotein metabolism; E11.51 Type 2 diabetes mellitus with diabetic peripheral angiopathy without gangrene; I16.0 Hypertensive urgency; E83.51 Hypocalcemia; H54.8 Legal blindness, as defined in USA; I25.10 Atherosclerotic heart disease of native coronary artery without angina pectoris; E66.9 Obesity, unspecified; E78.5 Hyperlipidemia, unspecified; Z87.441 Personal history of nephrotic syndrome; Z89.429 Acquired absence of other toe(s), unspecified side; Z91.158 Patient's noncompliance with renal dialysis for other reason; Z99.2 Dependence on renal dialysis; Z88.8 Allergy status to other drugs, medicaments and biological substances; Z91.041 Radiographic dye allergy status; Z68.27 Body mass index [BMI] 27.0-27.9, adult
CPT/HCPCS: 36415; 36558; 36600; 71045; 71250; 74176; 76604; 76770; 77001; 80048; 80051; 80053; 80061; 80074; 80305; 81001; 82010; 82040; 82270; 82306; 82565; 82570; 82607; 82728; 82746; 82803; 82948; 83036; 83540; 83550; 83605; 83735; 83880; 83930; 83935; 84100; 84145; 84156; 84439; 84443; 84481; 84484; 84520; 84550; 85014; 85018; 85025; 85027; 85610; 85730; 86038; 86160; 86215; 86235; 86255; 86701; 86704; 86706; 86850; 86900; 86901; 87040; 87088; 87340; 87390; 87635; 87804; 90935; 92610; 93005; 93306; 93970; 93971; 94640; 94664; 94760; A6250; C1750; G0378; J0360; J0612; J0690; J0692; J1644; J1756; J1815; J1940; J2001; J2250; J2405; J2550; J2704; J2765; J3010; J3475; J3490; J7030; J7050; A4216; A4222; A4223; A4649; A4930; A6207; C1713; C1894; G0168; J0665; Q5106

== ENCOUNTER 2024-02-11 09:24 | Emergency (ER) | payer SELFPAY ==
[~2024-02-11] VITALS: Ht 167.6 cm; Wt 61.7 kg
[~2024-02-11 09:24] MED LIST changes: +AMLO-257 PO; -AMLO2.5T2 PO; -CEPH250C3 PO; -INSU100V12 SQ
[2024-02-11 09:25] VITALS: TEMP 97.6
[2024-02-11 09:41] VITALS: BP 161/81; PULSE 84; RESP 18; O2SAT 98
== END 2024-02-11 10:02 | disposition home or self-care (01) ==
LOC: EDH 09:24
DX: I12.0 Hypertensive chronic kidney disease with stage 5 chronic kidney disease or end stage renal disease (principal); E11.22 Type 2 diabetes mellitus with diabetic chronic kidney disease; N18.6 End stage renal disease; Z49.02 Encounter for fitting and adjustment of peritoneal dialysis catheter; Z79.82 Long term (current) use of aspirin; Z88.6 Allergy status to analgesic agent; Z88.8 Allergy status to other drugs, medicaments and biological substances; Z91.041 Radiographic dye allergy status; Z98.890 Other specified postprocedural states

== ENCOUNTER 2024-02-15 14:45 | Emergency (ER) | payer SELFPAY ==
[~2024-02-15] VITALS: Ht 167.6 cm; Wt 69.9 kg
[2024-02-15 16:42] VITALS: BP 166/87; PULSE 80; RESP 16; TEMP 98.8; O2SAT 97
== END 2024-02-15 16:43 | disposition home or self-care (01) ==
LOC: EDH 14:45
DX: J81.1 Chronic pulmonary edema (principal); N18.6 End stage renal disease; E11.22 Type 2 diabetes mellitus with diabetic chronic kidney disease; Z79.82 Long term (current) use of aspirin; Z79.899 Other long term (current) drug therapy; Z98.890 Other specified postprocedural states; Z88.5 Allergy status to narcotic agent; Z88.8 Allergy status to other drugs, medicaments and biological substances
CPT/HCPCS: 99282

== ENCOUNTER 2024-02-16 11:10 | Day surgery (SDC) | payer SELFPAY ==
[2024-02-16 12:12] LABS: BASOPHILS # (AUTO) 0.08 K/uL (0.00-0.20); BASOPHILS % (AUTO) 0.9 % (0.0-5.0); EOSINOPHILS # (AUTO) 0.35 K/uL (0.00-0.70); EOSINOPHILS % (AUTO) 3.8 % (0.0-8.0); HEMATOCRIT 43.1 % (36-48); IMMATURE GRANULOCYTE ABSOLUTE 0.02 K/uL (0-1); LYMPHOCYTES # (AUTO) 2.8 K/uL (1.0-4.8); LYMPHOCYTES % (AUTO) 30.1 % (21.0-51.0); MEAN CORPUSCULAR HEMOGLOBIN 28.5 pg (27.0-33.0); MEAN CORPUSCULAR HGB CONC 31.6 g/dL (32.0-36.0); MEAN CORPUSCULAR VOLUME 90.4 fL (79-99); MONOCYTES # (AUTO) 0.7 K/uL (0.1-1.0); MONOCYTES % (AUTO) 7.1 % (3.0-13.0); NEUTROPHILS # (AUTO) 5.4 K/uL (1.8-7.7); NEUTROPHILS % (AUTO) 57.9 % (40.0-77.0); PLATELET COUNT (AUTO) 299 K/uL (130-400); RED BLOOD CELL COUNT(AUTO) 4.77 MIL/uL (4.00-5.50); RED CELL DISTRIBUTION WIDTH 14.8 % (11.0-15.5); WHITE BLOOD COUNT (AUTO) 9.3 K/uL (4.8-10.8)
[2024-02-16] MEDS ORDERED: LIDOCAINE HCL 1% MDV 50ML VIAL ONE (12:13)
[2024-02-16] MEDS ORDERED: BACITRACIN 1 EACH PACKET TP ONE (12:14)
[2024-02-16 12:19] LABS: INR <= 0.93 (0.85-1.15); PROTHROMBIN TIME 10.1 SEC (9.6-11.6)
[2024-02-16 12:26] LABS: CREATININE 5.2 mg/dL (0.5-1.0); POTASSIUM 4.6 mmol/L (3.5-5.1)
== END 2024-02-16 14:05 | disposition home or self-care (01) ==
LOC: CLH 11:10
PROVIDERS: ATTEND Internal Medicine Nephrology
DX: Z49.01 Encounter for fitting and adjustment of extracorporeal dialysis catheter (principal); I12.0 Hypertensive chronic kidney disease with stage 5 chronic kidney disease or end stage renal disease; E11.22 Type 2 diabetes mellitus with diabetic chronic kidney disease; N18.6 End stage renal disease; Z88.8 Allergy status to other drugs, medicaments and biological substances; Z79.899 Other long term (current) drug therapy; Z79.82 Long term (current) use of aspirin; Z89.429 Acquired absence of other toe(s), unspecified side
CPT/HCPCS: 36589; 71045; 80048; 85025; 85610; 85730; 82948; 36415; J3490; A4215; A6402; A4222; A4221; A4663; A4216; A6258; A4606; A4223 ×3